=== PATIENT | female | born 2000 | race American Indian/Alaskan Native ===

== ENCOUNTER 2021-07-24 01:54 | Emergency (ER) | payer SELFPAY ==
[2021-07-24 02:30] VITALS: BP 130/74
--- NOTE | 2021-07-24 11:32 | Electrocardiograph Report ---
[facility] Test Date: 2021-07-24 Test Time: 02:05:09 Pat Name: BOOKER LEGER Department: Room: Gender: F Rolling Machine Operator: FERNANDO : 2000 Requested By: ED DOC Order Number: [id number] Reading MD: Anson Joe Measurements Intervals [place] Rate: 123 P: 73 [place]: 149 QRS: 74 QRSD: 63 T: -36 QT: 310 QTc: 446 Interpretive Statements Sinus tachycardia ST segment and T wave abnormalities. Consider inferior and anterolateral ischemia No previous ECG available for comparison Electronically Signed On 07-24-2021 11:31:36 EDT by Anson Joe
== END 2021-07-26 07:39 | disposition left against medical advice (07) ==
LOC: ED 01:54
DX: F41.9 Anxiety disorder, unspecified (principal); Z53.21 Procedure and treatment not carried out due to patient leaving prior to being seen by health care provider
CPT/HCPCS: 93005